=== PATIENT | female | born 1935 | race Caucasian/White ===

== ENCOUNTER 2019-05-06 08:26 | Outpatient (CLI) | payer MEDICARE, SELFPAY ==
[2019-05-06 08:43] LABS: Hematocrit 37.5 % (35.0-42.0); Hemoglobin 12.1 g/dL (11.7-13.8); Mean Corpuscular HGB Conc 32.3 g/dL (32.0-36.0); Mean Corpuscular Hemoglobin 29.4 pg (27.0-31.0); Mean Platelet Volume 10.1 fl (9.2-11.8); Platelet Count Result 206 K/mm3 (150-420); Red Blood Count 4.12 M/mm3 (4.20-5.40); Red Cell Distribution Width 13.3 % (11.6-14.4); White Blood Count 17.9 K/mm3 (4.8-10.8)
[2019-05-06 09:03] LABS: Hemoglobin A1C 6.9 % (<5.7)
[2019-05-06 09:05] LABS: Band Neutrophils Percent 0 % (0-6); Basophils Absolute Manual 0.17 K/mm3 (0-0.1); Basophils Percent Manual 1 % (0-1); Eosinophils Absolute Manual 0.17 K/mm3 (0.02-0.5); Eosinophils Percent Manual 1 % (1-6); Lymphocytes Absolute Manual 10.74 K/mm3 (1.1-4.5); Lymphocytes Percent Manual 60 % (18-44); Monocytes Absolute Manual 0.53 K/mm3 (0.1-0.90); Monocytes Percent Manual 3 % (3-9); Neutrophils Absolute Manual 6.26 K/mm3 (1.7-7.2); Neutrophils Percent Manual 35 % (46-73); Platelet Estimate Adequate (Adequate); Total Cells Counted 100
[2019-05-06 09:39] LABS: Alanine Aminotransferase 22 U/L (14-59); Albumin Level 3.6 g/dL (3.4-5.0); Alkaline Phosphatase 103 U/L (46-116); Anion Gap 14.1 mmol/L (7-16); Aspartate Amino Transferase 20 U/L (15-37); Bilirubin,Total 0.2 mg/dL (0.00-1.00); Blood Urea Nitrogen 25 mg/dL (7-18); Calcium 9.5 mg/dL (8.5-10.1); Carbon Dioxide 27 mmol/L (21-32); Chloride 103 mmol/L (98-108); Cholesterol 130 mg/dL (0-200); Estimated Glomerular Filt Rate 41; Glucose 114 mg/dL (70-99); HDL Direct 50 mg/dL (40-60); LDL Cholesterol Calculated 52 mg/dL (<130); Osmolality Calculated 295 mOsm/kg (285-295); Potassium 4.1 mmol/L (3.5-5.1); Sodium 140 mmol/L (136-145); Total Protein 6.7 g/dL (6.4-8.2); Triglycerides 142 mg/dL (0-150)
== END 2019-05-06 08:27 | disposition home or self-care (01) ==
PROVIDERS: PCP Internal Medicine; Visit Provider Internal Medicine
DX: E78.00 Pure hypercholesterolemia, unspecified (principal); E11.9 Type 2 diabetes mellitus without complications; I10 Essential (primary) hypertension
CPT/HCPCS: 36415; 80053; 80061; 83036; 85025

== ENCOUNTER 2019-09-18 13:01 | Outpatient (CLI) | payer MEDICARE, SELFPAY ==
[2019-09-18 13:12] LABS: Hematocrit 36.8 % (35.0-42.0); Hemoglobin 11.8 g/dL (11.7-13.8); Mean Corpuscular HGB Conc 32.1 g/dL (32.0-36.0); Mean Corpuscular Hemoglobin 29.8 pg (27.0-31.0); Mean Corpuscular Volume 92.9 fL (78.0-102.0); Mean Platelet Volume 10.1 fl (9.2-11.8); Platelet Count Result 217 K/mm3 (150-420); Red Blood Count 3.96 M/mm3 (4.20-5.40); Red Cell Distribution Width 13.4 % (11.6-14.4); White Blood Count 16.8 K/mm3 (4.8-10.8)
[2019-09-18 13:38] LABS: Band Neutrophils Percent 1 % (0-6); Basophils Absolute Manual 0.16 K/mm3 (0-0.1); Basophils Percent Manual 1 % (0-1); Eosinophils Absolute Manual 0.33 K/mm3 (0.02-0.5); Eosinophils Percent Manual 2 % (1-6); Lymphocytes Absolute Manual 9.24 K/mm3 (1.1-4.5); Lymphocytes Percent Manual 55 % (18-44); Monocytes Absolute Manual 0.67 K/mm3 (0.1-0.90); Monocytes Percent Manual 4 % (3-9); Neutrophils Absolute Manual 6.38 K/mm3 (1.7-7.2); Neutrophils Percent Manual 37 % (46-73); Platelet Estimate Adequate (Adequate); Total Cells Counted 100
[2019-09-18 13:39] LABS: Atypical Lymphocytes Present
== END 2019-09-18 13:02 | disposition home or self-care (01) ==
PROVIDERS: PCP Internal Medicine; Visit Provider Internal Medicine Hematology & Oncology
DX: C91.10 Chronic lymphocytic leukemia of B-cell type not having achieved remission (principal)
CPT/HCPCS: 36415; 85025

== ENCOUNTER 2019-11-02 14:28 | Inpatient (IN) | payer MEDICARE, OTHER, MEDICAID, SELFPAY ==
--- NOTE | ~2019-11-02 | XR_ITS ---
EXAMINATION: XR chest 2V DATE: 11/02/2019 15:12 INDICATION: Weakness and hypotension TECHNIQUE: AP and lateral views of the chest are obtained. COMPARISON: 03/05/2017 FINDINGS: The lungs are free of acute opacities. There is no pleural effusion or pneumothorax. The ca rdiomediastinal silhouette is normal. There is mild thoracic spondylosis. IMPRESSION: 1. No acute cardiopulmonary abnormality. Reviewed, dictated and finalized at location A.
[2019-11-02 14:30] VITALS: BP 123/47; PULSE 50; RESP 19; TEMP 36.8; O2SAT 97
--- NOTE | 2019-11-02 14:44 | ED.WEAKNESS ---
HPI - Weakness General Chief complaint: Weakness Stated complaint: AMB Time Seen by Provider: 11/02/19 15:15 Source: patient, family and EMS Mode of arrival: EMS Limitations: no limitations History of Present Illness HPI Narrative: 84-year-old woman history of type 2 diabetes and hypertension arrives via EMS from the [facility] with a complaint of weakness. Today while supine the staff took her blood pressure and noticed SBP in the 80s. She was also bradycardic in the 40s and 50s. On the arrival of EMS she was sat up, her blood pressure was rechecked and was found to be normal. Patient states that she has been having abdominal pain for quite a long time but has a normal appetite. She has had off and on diarrhea for some time according to her daughter. She denies chest pain, shortness breath, vomiting, Fever, cough or cold symptoms, headache, cold symptoms, dysuria, frequent urination, or rash. Complaint: generalized weakness Onset (ago): day(s) Duration: constant Location: generalized Migration: none Severity: moderate Relieving factors: none Exacerbating factors: none Related Data Home Medications Medication Instructions Recorded Confirmed acetaminophen 1,000 mg PO BID PRN 11/02/19 11/02/19 allopurinol 200 mg PO DAILY 11/02/19 11/02/19 amlodipine 5 mg PO HS 11/02/19 11/02/19 aspirin 81 mg PO DAILY 11/02/19 11/02/19 calcium polycarbophil [Fiber-Lax] 1,250 mg PO BID 11/02/19 11/02/19 carvedilol 12.5 mg PO DAILY 11/02/19 11/02/19 donepezil 10 mg PO DAILY 11/02/19 11/02/19 escitalopram oxalate 10 mg PO DAILY 11/02/19 11/02/19 hydrochlorothiazide 25 mg PO DAILY 11/02/19 11/02/19 irbesartan 300 mg PO DAILY 11/02/19 11/02/19 lifitegrast [Xiidra] 1 drp OPHTHALMIC (EYE) BID 11/02/19 11/02/19 magnesium oxide 400 mg PO DAILY 11/02/19 11/02/19 montelukast 10 mg PO DAILY 11/02/19 11/02/19 pantoprazole 40 mg PO DAILY 11/02/19 11/02/19 rosuvastatin 5 mg PO DAILY 11/02/19 11/02/19 sitagliptin [Januvia] 100 mg PO DAILY 11/02/19 11/02/19 Allergies Allergy/AdvReac Type Severity Reaction Status Date / Time adhesive Allergy Mild Unknown Unverified 11/02/19 16:52 ciprofloxacin Allergy Unknown Unknown Verified 11/02/19 16:52 metformin Allergy Unknown Unknown Verified 11/02/19 16:52 Review of Systems Constitutional: Constitutional: Reports as per HPI, Denies chills, Denies fever(s) and Reports weakness Eyes: Eyes: Denies change in vision and Denies photophobia ENT: Denies dysphagia, Denies nasal congestion and Denies sore throat Cardiovascular: Cardiovascular: Denies chest pain and Denies radiating jaw, neck or arm pain Respiratory: Respiratory: Denies cough, Denies dyspnea and Denies wheezing Gastrointestinal: Gastrointestinal: Reports abdominal pain, Denies diarrhea, Denies nausea and Denies vomiting Musculoskeletal: Musculoskeletal: Denies back pain, Reports arthralgias ( Hips) and Denies joint swelling Integumentary/Breasts: Skin/Breast: Denies pruritus, Denies erythema and Denies rash Neurologic: Denies vertigo, Denies dizziness, Denies syncope and Denies headache(s) Hematologic/Lymphatic: Hematologic/Lymphatic: Denies easy bleeding and Denies easy bruising Allergic/Immunologic: Allergic/Immunologic: Denies lip swelling and Denies wheezing PMFSH Past Medical History Medical History Elevated WBC count Hypertension Type 2 diabetes mellitus Surgical History Surgical History H/O oophorectomy History of cholecystectomy History of hysterectomy History of total knee arthroplasty bilateral Hx of appendectomy Family History Family History (Updated 10/19/16 @ 11:16 by DOCTOR UNKNOWN) Father Diabetes mellitus Family history of rheumatoid arthritis Other Family history of malignant neoplasm Hypertension Social History Social History Michelle
--- NOTE | 2019-11-02 14:45 | ECG_ITS ---
Measurements Intervals [place] Rate: 48 P: -62 DC: 214 QRS: 5 QRSD: 94 T: 30 QT: 460 QTc: 413 Interpretive Statements SINUS BRADYCARDIA WITH FIRST DEGREE AV BLOCK ABNORMAL ECG Electronically Signed On 11-02-2019 17:19:28 CDT by Ricardo Jean D.O.
[2019-11-02 15:05] LABS: Add Urine Microscopic? YES; Appearance Urine Sl Cloudy (Clear); Bilirubin Urine Negative (Negative); Blood Urine Negative (Negative); Color Urine Yellow (Yellow); Glucose Urine UA Negative (Negative); Ketones Urine Trace (Negative); Leukocyte Esterase Ur Negative LEU/UL (Negative); Nitrate Urine Negative (Negative); Protein Urine 2+ (Negative); Specific Grav Ur 1.025 (1.010-1.020); Urobilinogen Urine 0.2 mg/dL (0.2-1.0)
[2019-11-02 15:06] LABS: Basophils Absolute Auto 0.04 K/mm3 (0.00-0.10); Basophils Percent Auto 0.3 % (0.0-1.0); Hematocrit 36.2 % (35.0-42.0); Hemoglobin 11.5 g/dL (11.7-13.8); Immature Granulocyte Absolute 0.05 K/mm3 (0.00-0.00); Immature Granulocyte Percent A 0.3 % (0.0-0.0); Lymphocytes Absolute Auto 5.55 K/mm3 (1.10-4.50); Lymphocytes Percent Auto 36.9 % (18.0-42.0); Mean Corpuscular HGB Conc 31.8 g/dL (32.0-36.0); Mean Corpuscular Hemoglobin 29.6 pg (27.0-31.0); Mean Corpuscular Volume 93.1 fL (78.0-102.0); Mean Platelet Volume 10.3 fl (9.2-11.8); Monocytes Percent Auto 4.7 % (2.0-11.0); Neutrophils Absolute Auto 8.4 K/mm3 (1.7-7.2); Neutrophils Percent Auto 55.8 % (50.0-70.0); Platelet Count Result 191 K/mm3 (150-420); Red Blood Count 3.89 M/mm3 (4.20-5.40); Red Cell Distribution Width 14.1 % (11.6-14.4); White Blood Count 15.1 K/mm3 (4.8-10.8)
[2019-11-02 15:08] LABS: Amorphous Sediment Urine Few; Bacteria Urine Trace /hpf; RBC Urine None seen /hpf (0-2); Squamous Epithelial Cell Urine Rare /hpf (Few); WBC Urine None seen /hpf (0-3)
[2019-11-02 15:18] LABS: Partial Thromboplastin Time 27.6 SEC (22.3-31.6); Prothrombin Time 10.4 Seconds (9.64-11.0)
[2019-11-02 15:25] LABS: Alanine Aminotransferase 21 U/L (14-59); Albumin Level 3.2 g/dL (3.4-5.0); Alkaline Phosphatase 111 U/L (46-116); Anion Gap 6.3 mmol/L (7-16); Aspartate Amino Transferase 16 U/L (15-37); Bilirubin,Total 0.3 mg/dL (0.00-1.00); Blood Urea Nitrogen 28 mg/dL (7-18); CRP 0.3 mg/dL (0.0-0.9); Calcium 8.9 mg/dL (8.5-10.1); Carbon Dioxide 33 mmol/L (21-32); Chloride 101 mmol/L (98-108); Estimated Glomerular Filt Rate 28; Glucose 226 mg/dL (70-99); Osmolality Calculated 294 mOsm/kg (285-295); Potassium 4.3 mmol/L (3.5-5.1); Sodium 136 mmol/L (136-145); Total Protein 6.4 g/dL (6.4-8.2)
[2019-11-02 15:27] LABS: Lipase 207 U/L (73-393); Troponin I < 0.02 ng/mL (0.00-0.056)
[2019-11-02 15:29] LABS: Lactic Acid Reflex 1.7 mmol/L (0.4-2.0)
[2019-11-02 15:56] VITALS: BP 142/67; PULSE 50; RESP 15; O2SAT 95
[2019-11-02 16:30] VITALS: BP 163/87; PULSE 50; O2SAT 95
[2019-11-02 16:58] VITALS: BMI 39.1
--- NOTE | 2019-11-02 17:44 | PC.NURSE ---
MD notified that patient is c/o pain to left knee. Patient given PRN pain medication, patient continues to curse and yell out. New orders received.
[2019-11-02] MEDS: calcium polycarbophiL 625 MG TABLET 1250 MG PO (18:07)
[2019-11-02] MEDS: SODIUM CHLORIDE 0.45% 1,000 ML 100 ML IV CONT ×2 (18:07→20:15)
--- NOTE | 2019-11-02 19:10 | PC.NURSE ---
Patient ambulated to/from bathroom with gait belt, walker and CGA. IV fluids infusing to site in LAC without difficulty. Daughter in room but getting ready to leave. Patient denies pain/complaints/needs @ this time. No distress noted. Call light in reach.
[2019-11-02 19:53] VITALS: BP 162/49; PULSE 50; RESP 20; TEMP 36.4; O2SAT 97
--- NOTE | 2019-11-02 20:05 | PC.NURSE ---
Patient A&Ox4. IV fluids infusing to site in LAC without difficulty. Denies pain/complaints/needs @ this time. No distress noted. Call light in reach.
[2019-11-02] MEDS: amLODIPine BESYLATE 5 MG TABLET PO (20:15)
[2019-11-02 20:25] LABS: Troponin I < 0.02 ng/mL (0.00-0.056)
--- NOTE | 2019-11-02 21:00 | PC.NURSE ---
Patient lying in bed watching tv. IV fluids infusing to site in LAC without difficulty. Denies pain/complaints/needs @ this time. No distress noted. Call light in reach.
[2019-11-02 21:50] LABS: Glucose Point of Care 182 (65-105)
--- NOTE | 2019-11-02 22:10 | PC.NURSE ---
Patient still lying in bed awake and watching tv. IV fluids infusing to site in LAC without difficulty. Denies pain/complaints/needs @ this time. No distress noted. Call light in reach.
--- NOTE | 2019-11-02 23:05 | PC.NURSE ---
IV fluids infusing to site in LAC without difficulty. Denies pain/complaints/needs @ this time. Patient says she just can't get to sleep tonight. No distress noted. Call light in reach.
[2019-11-03] VITALS (13 sets, daily range): BP systolic 123–155; BP diastolic 47–96; PULSE 50–68; RESP 16–20; TEMP 36.6–37.3; O2SAT 93–95
--- NOTE | 2019-11-03 00:05 | PC.NURSE ---
Patient still wide awake watching tv. IV fluids infusing to site in LAC without difficulty. Denies pain/complaints/needs @ this time. No distress noted. Call light in reach.
--- NOTE | 2019-11-03 01:00 | PC.NURSE ---
Patient still wide awake and says she just can't sleep and says she thinks it's because she doesn't have all these different channels @ home and she keeps finding things interesting to watch. Suggested patient turn tv off and try to sleep and she said maybe later. IV fluids infusing to site in LAC without difficulty. Denies pain/complaints/needs @ this time. No distress noted. Call light in reach.
[2019-11-03 01:40] LABS: Hematocrit 35.2 % (35.0-42.0); Hemoglobin 11.1 g/dL (11.7-13.8); Mean Corpuscular HGB Conc 31.5 g/dL (32.0-36.0); Mean Corpuscular Hemoglobin 29.1 pg (27.0-31.0); Mean Corpuscular Volume 92.1 fL (78.0-102.0); Mean Platelet Volume 10.5 fl (9.2-11.8); Platelet Count Result 194 K/mm3 (150-420); Red Blood Count 3.82 M/mm3 (4.20-5.40); Red Cell Distribution Width 13.8 % (11.6-14.4); White Blood Count 19.9 K/mm3 (4.8-10.8)
--- NOTE | 2019-11-03 02:00 | PC.NURSE ---
Patient appears to be sleeping by the rise and fall of her chest. Respirations even and unlabored. No distress noted. IV fluids infusing to site in LAC without difficulty. Call light in reach.
[2019-11-03 02:02] LABS: Band Neutrophils Percent 0 % (0-6); Basophils Absolute Manual 0.19 K/mm3 (0-0.1); Basophils Percent Manual 1 % (0-1); Eosinophils Absolute Manual 0.59 K/mm3 (0.02-0.5); Eosinophils Percent Manual 3 % (1-6); Lymphocytes Absolute Manual 11.14 K/mm3 (1.1-4.5); Lymphocytes Percent Manual 56 % (18-44); Metamyelocytes Percent 1 %; Monocytes Absolute Manual 0.79 K/mm3 (0.1-0.90); Monocytes Percent Manual 4 % (3-9); Neutrophils Absolute Manual 6.96 K/mm3 (1.7-7.2); Neutrophils Percent Manual 35 % (46-73); Platelet Estimate Adequate (Adequate)
[2019-11-03 02:09] LABS: Troponin I < 0.02 ng/mL (0.00-0.056)
[2019-11-03 02:10] LABS: Alanine Aminotransferase 18 U/L (14-59); Alkaline Phosphatase 104 U/L (46-116); Anion Gap 7.1 mmol/L (7-16); Aspartate Amino Transferase 17 U/L (15-37); Bilirubin,Total 0.3 mg/dL (0.00-1.00); Blood Urea Nitrogen 28 mg/dL (7-18); Calcium 8.9 mg/dL (8.5-10.1); Carbon Dioxide 30 mmol/L (21-32); Chloride 102 mmol/L (98-108); Estimated CRCL calculation 27 ml/min; Estimated Glomerular Filt Rate 37; Glucose 156 mg/dL (70-99); Osmolality Calculated 288 mOsm/kg (285-295); Potassium 4.1 mmol/L (3.5-5.1); Sodium 135 mmol/L (136-145); Total Protein 6.1 g/dL (6.4-8.2)
[2019-11-03 02:33] LABS: Lactic Acid 0.8 mmol/L (0.4-2.0)
--- NOTE | 2019-11-03 03:10 | PC.NURSE ---
Patient awake and is watching tv. Says she just can't sleep because it's not her regular bed and hers is much larger. Respirations even and unlabored. IV fluids infusing to site in LAC without difficulty. No distress noted. Denies pain/complaints/needs @ this time. Call light in reach.
--- NOTE | 2019-11-03 04:00 | PC.NURSE ---
Patient ambulated to/from bathroom with walker, gait belt and CGA with steady gait. Patient incontinent of urine with incontinence care provided. Denies pain/complaints/needs @ this time. IV fluids infusing to site in LAC without difficulty. No distress noted. Call light in reach.
--- NOTE | 2019-11-03 05:00 | PC.NURSE ---
Patient appears to be sleeping by the rise and fall of her chest. Respirations even and unlabored. IV fluids infusing to site in LAC without difficulty. No distress noted. Call light in reach.
[2019-11-03 07:36] LABS: Glucose Point of Care 110 (65-105)
[2019-11-03 08:02] LABS: Hemoglobin 11.1 g/dL (11.7-13.8); Mean Corpuscular HGB Conc 31.7 g/dL (32.0-36.0); Mean Corpuscular Hemoglobin 28.9 pg (27.0-31.0); Mean Corpuscular Volume 91.1 fL (78.0-102.0); Mean Platelet Volume 10.4 fl (9.2-11.8); Platelet Count Result 194 K/mm3 (150-420); Red Blood Count 3.84 M/mm3 (4.20-5.40); Red Cell Distribution Width 13.7 % (11.6-14.4)
[2019-11-03 08:03] LABS: White Blood Count 20.3 K/mm3 (4.8-10.8)
[2019-11-03] MEDS: MONTELUKAST SODIUM 10 MG TABLET PO (09:24)
[2019-11-03] MEDS: hydroCHLOROthiazide 25 MG TABLET PO (09:24)
[2019-11-03] MEDS: PANTOPRAZOLE 40 MG TABLET PO (09:24)
[2019-11-03] MEDS: ESCITALOPRAM OXALATE 10 MG TABLET PO (09:24)
[2019-11-03] MEDS: MAGNESIUM OXIDE 400 MG TABLET PO (09:24)
[2019-11-03] MEDS: ROSUVASTATIN 5 MG TABLET PO (09:24)
[2019-11-03] MEDS: calcium polycarbophiL 625 MG TABLET 1250 MG PO ×2 (09:24→17:28)
[2019-11-03] MEDS: DONEPEZIL HCL 5 MG TABLET 10 MG PO (09:25)
[2019-11-03] MEDS: allopurinoL 100 MG TABLET 200 MG PO (09:25)
[2019-11-03] MEDS: ASPIRIN 81 MG ENTERIC TABLET PO (09:26)
[2019-11-03] MEDS: SODIUM CHLORIDE 0.45% 1,000 ML 100 ML IV CONT ×2 (09:29→19:05)
[2019-11-03] MEDS: IRBESARTAN 150 MG TABLET 300 MG PO (09:46)
[2019-11-03 11:24] LABS: Glucose Point of Care 142 (65-105)
--- NOTE | 2019-11-03 11:44 | PM.IMHP ---
H&P: HPI History of Present Illness Date/Time: 11/03/19 11:44 <BETTY Arciniega - Last Filed: 11/03/19 12:05> Chief complaint: dehydration <BETTY Arciniega - Last Filed: 11/03/19 12:05> Narrative: Ashley Prescott is a 84 year old female Who presented to [facility] ED with complaints of weakness. Patient has a past medical history of CML, hypertension and diabetes. Patient is a resident of [place] and noted that yesterday she developed uncontrolled diarrhea and became weak. According to staff members patient's systolic blood pressure was in the 80s with heart rates being in the 40s to 50s. Patient does have a history of abdominal tenderness and this is not new to her. Her vital signs are 142/60, 53, 18, 97.6, 94%. Patient white blood cells were elevated but she has a history of elevated white blood cells due to CML, her BUN and creatinine was slightly elevated her EKG did show sinus Jovanny with heart rate of 40 a chest x-ray negative troponin negative lactic acid normal blood culture and UA culture pending. Patient is being admitted for dehydration and weakness. Patient able to tolerate all meals , slept well and ambulate at baseline. Patient denies SOB, CP, palpitation, extremity numbness, lightheadness, constipation, diarrhea, chills or fever. patient does continue to complain of dizziness when sitting on the side of bed or standing. patient will possibly discharge tomorrow after IV hydration. <BETTY Arciniega - Last Filed: 11/03/19 12:05> Review of Systems Review of Systems: Narrative: CONSTITUTIONAL :No weight loss, fever, chills, complains of weakness or fatigue.: HEENT: Eyes: No diplopia or blurred vision. ENT: No earache, sore throat or runny nose. CARDIOVASCULAR: No pressure, squeezing, strangling, tightness, heaviness or aching about the chest, neck, axilla or epigastrium. RESPIRATORY: No cough, shortness of breath, PND or orthopnea. GASTROINTESTINAL: No nausea, vomiting or diarrhea. abdominal tenderness chronic GENITOURINARY: No dysuria, frequency or urgency. MUSCULOSKELETAL: No muscle, back pain, joint pain or stiffness. SKIN: No change in skin, hair or nails. NEUROLOGIC: No paresthesias, fasciculations, seizures patient does complain of dizziness PSYCHIATRIC: No disorder of thought or mood. ENDOCRINE: No heat or cold intolerance, polyuria or polydipsia. HEMATOLOGICAL: No easy bruising or bleeding. <BETTY Arciniega - Last Filed: 11/03/19 12:05> [facility] Past Medical History Medical History: Medical History (Updated 11/03/19 @ 09:32 by BETTY Arciniega) CML (chronic myelocytic leukemia) Elevated WBC count Hypertension Type 2 diabetes mellitus <BETTY Arciniega - Last Filed: 11/03/19 12:05> Surgical History Surgical History: Surgical History H/O oophorectomy History of cholecystectomy History of hysterectomy History of total knee arthroplasty bilateral Hx of appendectomy <BETTY Arciniega - Last Filed: 11/03/19 12:05> Family History Family History: Family History (Updated 10/19/16 @ 11:16 by DOCTOR UNKNOWN) Father Diabetes mellitus Family history of rheumatoid arthritis Other Family history of malignant neoplasm Hypertension <BETTY Arciniega - Last Filed: 11/03/19 12:05> Social History Social History: Social History Smoking status: Never smoker Alcohol intake: former Substance use: never Substance use type: does not use Living arrangements: assisted living Gender identity (if verbalized by the patient): Female Sexual Orientation (if Verbalized by the Patient): Straight or Heterosexual Spiritual care concerns: No <BETTY Arciniega - Last Filed: 11/03/19 12:05> Meds Home Medications and Allergies Home medications: Home Medications Medication In
[2019-11-03 16:34] LABS: Glucose Point of Care 126 (65-105)
[2019-11-03] MEDS: ACETAMINOPHEN 325 MG TABLET 650 MG PO (19:21)
[2019-11-03] MEDS: amLODIPine BESYLATE 5 MG TABLET PO (21:08)
[2019-11-03 21:34] LABS: Glucose Point of Care 147 (65-105)
--- NOTE | 2019-11-03 22:56 | PC.NURSE ---
Sleeping, no signs of pain or distress.
--- NOTE | 2019-11-04 00:33 | PC.NURSE ---
Incontinent of urine x 2 requiring complete bed and gown change as well as voiding in bathroom. 1000ml 0.45NS continues @100ml/hr per pump without signs of infiltration/infection.
[2019-11-04 00:35] VITALS: TEMP 36.5
--- NOTE | 2019-11-04 02:35 | PC.NURSE ---
Sleeping, no signs of pain or discomfort. IV: 1000ml 0.45 NS continues per pump @100ml/hr.
[2019-11-04 03:49] VITALS: BP 160/60; PULSE 51; RESP 18; TEMP 36.9; O2SAT 93
[2019-11-04 05:34] LABS: Hematocrit 35.6 % (35.0-42.0); Hemoglobin 11.3 g/dL (11.7-13.8); Mean Corpuscular HGB Conc 31.7 g/dL (32.0-36.0); Mean Corpuscular Hemoglobin 29.1 pg (27.0-31.0); Mean Corpuscular Volume 91.8 fL (78.0-102.0); Mean Platelet Volume 10.1 fl (9.2-11.8); Platelet Count Result 200 K/mm3 (150-420); Red Blood Count 3.88 M/mm3 (4.20-5.40); White Blood Count 19.7 K/mm3 (4.8-10.8)
[2019-11-04 05:54] LABS: Band Neutrophils Percent 0 % (0-6); Basophils Percent Manual 0 % (0-1); Eosinophils Absolute Manual 0.19 K/mm3 (0.02-0.5); Eosinophils Percent Manual 1 % (1-6); Lymphocytes Percent Manual 65 % (18-44); Monocytes Absolute Manual 0.98 K/mm3 (0.1-0.90); Monocytes Percent Manual 5 % (3-9); Neutrophils Absolute Manual 5.71 K/mm3 (1.7-7.2); Neutrophils Percent Manual 29 % (46-73); Platelet Estimate Adequate (Adequate)
[2019-11-04 05:58] LABS: Alanine Aminotransferase 21 U/L (14-59); Albumin Level 3.1 g/dL (3.4-5.0); Anion Gap 8.1 mmol/L (7-16); Aspartate Amino Transferase 16 U/L (15-37); Bilirubin,Total 0.4 mg/dL (0.00-1.00); Blood Urea Nitrogen 24 mg/dL (7-18); Calcium 9.1 mg/dL (8.5-10.1); Carbon Dioxide 29 mmol/L (21-32); Chloride 99 mmol/L (98-108); Estimated CRCL calculation 30 ml/min; Estimated Glomerular Filt Rate 41; Glucose 118 mg/dL (70-99); Osmolality Calculated 279 mOsm/kg (285-295); Potassium 4.1 mmol/L (3.5-5.1); Sodium 132 mmol/L (136-145); Total Protein 6.3 g/dL (6.4-8.2)
[2019-11-04 06:08] LABS: Alkaline Phosphatase 113 U/L (46-116)
--- NOTE | 2019-11-04 06:20 | PC.NURSE ---
Up to bathroom, discussed need to stay on toilet until bed changed. Patient found standing at sink, returned to bed without problems; while lying in bed; states turned head and became momentarily dizzy. Sensation resolved without intervention after a few moments.
[2019-11-04] MEDS: SODIUM CHLORIDE 0.45% 1,000 ML 100 ML IV CONT (06:26)
[2019-11-04 07:45] VITALS: BP 158/57; PULSE 50; PULSE 52; RESP 16; TEMP 36.6; O2SAT 96
[2019-11-04 07:54] LABS: Glucose Point of Care 111 (65-105)
[2019-11-04] MEDS: IRBESARTAN 150 MG TABLET 300 MG PO (08:51)
[2019-11-04] MEDS: MONTELUKAST SODIUM 10 MG TABLET PO (08:52)
[2019-11-04] MEDS: ESCITALOPRAM OXALATE 10 MG TABLET PO (08:52)
[2019-11-04] MEDS: DONEPEZIL HCL 5 MG TABLET 10 MG PO (08:52)
[2019-11-04] MEDS: calcium polycarbophiL 625 MG TABLET 1250 MG PO (08:52)
[2019-11-04 08:53] VITALS: PULSE 56
[2019-11-04] MEDS: PANTOPRAZOLE 40 MG TABLET PO (08:53)
[2019-11-04] MEDS: ROSUVASTATIN 5 MG TABLET PO (08:53)
[2019-11-04] MEDS: ASPIRIN 81 MG ENTERIC TABLET PO (08:53)
[2019-11-04] MEDS: hydroCHLOROthiazide 25 MG TABLET PO (08:54)
[2019-11-04] MEDS: MAGNESIUM OXIDE 400 MG TABLET PO (08:54)
[2019-11-04] MEDS: amLODIPine BESYLATE 2.5 MG, amLODIPine BESYLATE 5 MG 7.5 MG PO (08:54)
[2019-11-04] MEDS: allopurinoL 100 MG TABLET 200 MG PO (08:54)
[2019-11-04 11:37] LABS: Glucose Point of Care 135 (65-105)
[2019-11-04 12:00] VITALS: BP 126/58; PULSE 60; PULSE 62; RESP 18; TEMP 36.6; O2SAT 96
--- NOTE | 2019-11-04 12:49 | P.DS_ITS ---
DS: Admitting Diagnosis Admitting Diagnosis Admitting Diagnosis: bradycardia and dehydration <Mary VizcainoDAVID IbarraC - Last Filed: 11/04/19 12:58> DS: Discharge Diagnosis Discharge Diagnosis (1) CML (chronic myelocytic leukemia): Code(s): C92.10 - Chronic myeloid leukemia, BCR/ABL-positive, not having achieved remission <Uvaldoezequiel CarrilloSAMEER Ibarra-C - Last Filed: 11/04/19 12:58> Status: Acute <Mary HuertaDAVIDC - Last Filed: 11/04/19 12:58> Assessment and Plan: * patient wbc's remain elevated due to CML * her PCP follows and manages <Uvaldoezequiel CarrilloBETTY Ibarra - Last Filed: 11/04/19 12:58> (2) Weakness: Code(s): R53.1 - Weakness <Uvaldoezequiel CarrilloDAVID IbarraC - Last Filed: 11/04/19 12:58> Status: Acute <Uvaldoezequiel CarrilloSAMEER Ibarra-C - Last Filed: 11/04/19 12:58> Assessment and Plan: ? Exhibit tolerance during physical activity as evidenced by a normal fluctuation of vital signs during physical activity. ? Patient will be ability to perform required activities of daily living. ? Provide appropriate nutrition for healing and strength. ? Use appropriate to prevent falls. ? Continue physical therapy/occupational therapy. <Uvaldoezequiel CarrilloBETTY Ibarra - Last Filed: 11/04/19 12:58> (3) Acute dehydration: Code(s): E86.0 - Dehydration <Uvaldoezequiel CarrilloDAVID IbarraC - Last Filed: 11/04/19 12:58> Status: Acute <Uvaldoezequiel CarrilloSAMEER Ibarra-[place] - Last Filed: 11/04/19 12:58> Assessment and Plan: * resolved * secondary to diarrhea * continue IV hydration * continue orthostatic blood pressure readings line 123/88 with a heart rate of 50, sitting 129/96 with a heart rate of 60 in standing 138/47 with a heart rate of 68 <SAMEER Arciniega-C - Last Filed: 11/04/19 12:58> (4) Bradycardia: Code(s): R00.1 - Bradycardia, unspecified <SAMEER Arciniega-C - Last Filed: 11/04/19 12:58> Status: Acute <Mary HuertaSAMEERLmVenice - Last Filed: 11/04/19 12:58> Assessment and Plan: * Previous blood pressure reading at doctor's office on May 09, 2019 93/67 with a heart rate of 77 * Coreg 12.5 mg b.i.d.on hold * contacted patient's primary care physician suggested patient discharged with carvedilol 3.12 daily * will follow-up with primary care physician for adjustment * might possibly be secondary to dehydration * educated on fall and dizziness prevention * <Uvaldoezequiel CarrilloBETTY Ibarra - Last Filed: 11/04/19 12:58> (5) Hypertension: Code(s): I10 - Essential (primary) hypertension <Mary VizcainoChristos BradleyBETTY - Last Filed: 11/04/19 12:58> Status: Acute <Mary VizcainoSAMEER IbarraLmVenice - Last Filed: 11/04/19 12:58> Assessment and Plan: * blood pressure stable * continue Norvasc, coreg and hydrochlorothiazide * primary care physician will manage <Mary VizcainoChristos BradleyBETTY - Last Filed: 11/04/19 12:58> (6) Type 2 diabetes mellitus: Code(s): E11.9 - Type 2 diabetes mellitus without complications <Mary VizcainoBETTY Ibarra - Last Filed: 11/04/19 12:58> Status: Acute <Mary VizcainoSAMEER IbarraLmVenice - Last Filed: 11/04/19 12:58> Assessment and Plan: * May 06, 2019 A1c at 6.9 * continue home medication * <BETTY Arciniega - Last Filed: 11/04/19 12:58> DS: Summary Hospital Course Hospital Course: Refer to H&P patient discharged today. contacted Dr. Perez informed them of patient's new bradycardia. suggested that patient's carvedilol be reduced and she fo
--- NOTE | 2019-11-04 12:49 | PM.DS ---
DS: Admitting Diagnosis Admitting Diagnosis Admitting Diagnosis: bradycardia and dehydration <Uvaldoezequiel CarrilloBETTY Ibarra - Last Filed: 11/04/19 12:58> DS: Discharge Diagnosis Discharge Diagnosis (1) CML (chronic myelocytic leukemia): Code(s): C92.10 - Chronic myeloid leukemia, BCR/ABL-positive, not having achieved remission <Uvaldoezequiel CarrilloDAVID IbarraC - Last Filed: 11/04/19 12:58> Status: Acute <Mary VizcainoDAVID IbarraC - Last Filed: 11/04/19 12:58> Assessment and Plan: patient wbc's remain elevated due to CML her PCP follows and manages <UvaldoBETTY Ayala - Last Filed: 11/04/19 12:58> (2) Weakness: Code(s): R53.1 - Weakness <Mary VizcainoBETTY Ibarra - Last Filed: 11/04/19 12:58> Status: Acute <Mary CarrilloDAVID IbarraC - Last Filed: 11/04/19 12:58> Assessment and Plan: ? Exhibit tolerance during physical activity as evidenced by a normal fluctuation of vital signs during physical activity. ? Patient will be ability to perform required activities of daily living. ? Provide appropriate nutrition for healing and strength. ? Use appropriate to prevent falls. ? Continue physical therapy/occupational therapy. <Uvaldoezequiel CarrilloBETTY Ibarra - Last Filed: 11/04/19 12:58> (3) Acute dehydration: Code(s): E86.0 - Dehydration <Mary VizcainoBETTY Ibarra - Last Filed: 11/04/19 12:58> Status: Acute <Uvaldoezequiel CarrilloBETTY Ibarra - Last Filed: 11/04/19 12:58> Assessment and Plan: resolved secondary to diarrhea continue IV hydration continue orthostatic blood pressure readings line 123/88 with a heart rate of 50, sitting 129/96 with a heart rate of 60 in standing 138/47 with a heart rate of 68 <Mary CarrilloSAMEER Ibarra-C - Last Filed: 11/04/19 12:58> (4) Bradycardia: Code(s): R00.1 - Bradycardia, unspecified <DAVID ArciniegaC - Last Filed: 11/04/19 12:58> Status: Acute <Mary HuertaSAMEERLmVenice - Last Filed: 11/04/19 12:58> Assessment and Plan: Previous blood pressure reading at doctor's office on May 09, 2019 93/67 with a heart rate of 77 Coreg 12.5 mg b.i.d.on hold contacted patient's primary care physician suggested patient discharged with carvedilol 3.12 daily will follow-up with primary care physician for adjustment might possibly be secondary to dehydration educated on fall and dizziness prevention <Mary VizcainoBETTY Ibarra - Last Filed: 11/04/19 12:58> (5) Hypertension: Code(s): I10 - Essential (primary) hypertension <Mary VizcainoBETTY Ibarra - Last Filed: 11/04/19 12:58> Status: Acute <Mary HuertaANGELITADakota - Last Filed: 11/04/19 12:58> Assessment and Plan: blood pressure stable continue Norvasc, coreg and hydrochlorothiazide primary care physician will manage <Mary HuertaSAMEERCaro - Last Filed: 11/04/19 12:58> (6) Type 2 diabetes mellitus: Code(s): E11.9 - Type 2 diabetes mellitus without complications <Mary VizcainoSAMEER IbarraLmVenice - Last Filed: 11/04/19 12:58> Status: Acute <Mary Huerta BETTY - Last Filed: 11/04/19 12:58> Assessment and Plan: May 06, 2019 A1c at 6.9 continue home medication <Mary VizcainoChristos BradleySAMEERCaro - Last Filed: 11/04/19 12:58> DS: Summary Hospital Course Hospital Course: Refer to H&P patient discharged today. contacted Dr. Perez informed them of patient's new bradycardia. suggested that patient's carvedilol be reduced and she follow-up in his office. Patient educated on dizziness And dehydration prevention. patient's ears checked bilateral no otitis media indication . received report that patient becomes dizzy knees when she turned her head to the left or right. Patient able to tolerate all meals , slept well and ambulate at baseline. Patient denies SOB, CP, palpitation, extremity numbness, lightheadness, co
== END 2019-11-04 12:40 | DRG 641 ==
LOC: CHSED 14:35 → CHS2ND 16:18
PROVIDERS: Nurse Practitioner; Admitting Provider Emergency Medicine; Emergency Provider Emergency Medicine; PCP Internal Medicine; Visit Provider Emergency Medicine
DX: E86.0 Dehydration (principal); C92.10 Chronic myeloid leukemia, BCR/ABL-positive, not having achieved remission; E11.9 Type 2 diabetes mellitus without complications; I10 Essential (primary) hypertension; R00.1 Bradycardia, unspecified
CPT/HCPCS: 36415; 51701; 71046; 80053; 81001; 83605; 83690; 84484; 85025; 85027; 85610; 85730; 86140; 87040; 87077; 87086; 87088; 87186; 93005; 96360; 96361; 97161; 97165; 99283; 99285; A9270; G0378

== ENCOUNTER 2020-06-23 10:06 | Outpatient (NON) | payer MEDICARE, SELFPAY ==
[2020-06-23 10:23] LABS: Add Urine Microscopic? NO; Appearance Urine Clear (Clear); Bilirubin Urine Negative (Negative); Blood Urine Negative (Negative); Color Urine Yellow (Yellow); Glucose Urine UA Negative (Negative); Ketones Urine Negative (Negative); Leukocyte Esterase Ur Negative LEU/UL (Negative); Nitrate Urine Negative (Negative); Protein Urine Negative (Negative); Urobilinogen Urine 0.2 mg/dL (0.2-1.0); pH Urine 6.5 (5.0-8.0)
[2020-06-23 10:25] LABS: Hematocrit 36.8 % (35.0-42.0); Hemoglobin 11.5 g/dL (11.7-13.8); Mean Corpuscular HGB Conc 31.3 g/dL (32.0-36.0); Mean Corpuscular Hemoglobin 27.8 pg (27.0-31.0); Mean Corpuscular Volume 88.9 fL (78.0-102.0); Mean Platelet Volume 10.3 fl (9.2-11.8); Platelet Count Result 215 K/mm3 (150-420); Red Blood Count 4.14 M/mm3 (4.20-5.40); Red Cell Distribution Width 14.2 % (11.6-14.4)
[2020-06-23 10:45] LABS: White Blood Count 20.3 K/mm3 (4.8-10.8)
[2020-06-23 10:46] LABS: Band Neutrophils Percent 0 % (0-6); Basophils Percent Manual 0 % (0-1); Eosinophils Absolute Manual 0.81 K/mm3 (0.02-0.5); Eosinophils Percent Manual 4 % (1-6); Lymphocytes Percent Manual 69 % (18-44); Monocytes Percent Manual 3 % (3-9); Neutrophils Absolute Manual 4.87 K/mm3 (1.7-7.2); Neutrophils Percent Manual 24 % (46-73); Platelet Estimate Adequate (Adequate); Total Cells Counted 100
[2020-06-23 10:52] LABS: Hemoglobin A1C 7.5 % (<5.7)
[2020-06-23 11:00] LABS: Alanine Aminotransferase 18 U/L (14-59); Albumin Level 3.3 g/dL (3.4-5.0); Alkaline Phosphatase 119 U/L (46-116); Anion Gap 8 mmol/L (8-16); Aspartate Amino Transferase 12 U/L (15-37); Bilirubin,Total 0.3 mg/dL (0.00-1.00); Blood Urea Nitrogen 24 mg/dL (7-18); Calcium 9.5 mg/dL (8.5-10.1); Carbon Dioxide 30 mmol/L (21-32); Chloride 99 mmol/L (98-108); Cholesterol 115 mg/dL (0-200); Estimated Glomerular Filt Rate 39; Glucose 123 mg/dL (70-99); HDL Direct 37 mg/dL (40-60); LDL Cholesterol Calculated 41 mg/dL (<130); Osmolality Calculated 289 mOsm/kg (285-295); Potassium 4.6 mmol/L (3.5-5.1); Sodium 137 mmol/L (136-145); Thyroid Stimulating Hormone 1.35 uIU/mL (0.36-3.74); Triglycerides 186 mg/dL (0-150)
== END 2020-06-23 10:07 ==
LOC: CHSLAB 10:07
PROVIDERS: Visit Provider Internal Medicine
DX: E11.9 Type 2 diabetes mellitus without complications (principal); I10 Essential (primary) hypertension; E78.00 Pure hypercholesterolemia, unspecified; R53.83 Other fatigue
CPT/HCPCS: 36415; 80053; 80061; 81003; 83036; 84443; 85025

== ENCOUNTER 2020-08-20 08:56 | Emergency (ER) | payer MEDICARE, OTHER, MEDICAID, SELFPAY ==
--- NOTE | ~2020-08-20 | XR_ITS ---
EXAMINATION: XR pelvis 1-2V DATE: 08/20/2020 10:14 INDICATION: Pelvic pain post fall TECHNIQUE: An anteroposterior view of the pelvis was obtained on 3 images. COMPARISON: Hip radiographs dated 09/19/2015 and 01/08/2013 FINDINGS: Partially visualized lumbar levorotoscoliosis with severe spondylosis. Alignment is otherwise normal. No acute fracture. Moderate right and mild left hip osteoarthritis. There is also mild to moderate b ilateral sacroiliac osteoarthritis. IMPRESSION: 1. Mild left and moderate right hip osteoarthritis. No acute osseous abnormality. 2. Mild lumbar levo rotoscoliosis with severe spondylosis. Reviewed, dictated and finalized at location A. IMPRESSION: 1. Mild left and moderate right hip osteoarthritis. No acute osseous abnormalit y. 2. Mild lumbar levo rotoscoliosis with severe spondylosis.
--- NOTE | ~2020-08-20 | XR_ITS ---
EXAMINATION: XR shoulder RT min 2V DATE: 08/20/2020 09:49 INDICATION: Right shoulder pain post fall TECHNIQUE: AP internally and externally rotated, AP oblique externally rotated, axillary and transsca pular Y views of the right shoulder were obtained. COMPARISON: None FINDINGS: Normal alignment. No fracture.Mild to moderate glenohumeral and acromioclavicular osteoarthritis. So ft tissues are unremarkable. Small calcified nodule in the right upper lung zone consistent with old granulomatous disease. IMPRESSION: Mild to moderate right glenohumeral and acromioclavicular osteoarthritis. No acute osseous abnormalit y. Reviewed, dictated and finalized at location A. IMPRESSION: Mild to moderate right glenohumeral and acromioclavicular osteoarthritis. No ac richelle osseous abnormality.
--- NOTE | ~2020-08-20 | CT_ITS ---
EXAMINATION: CT brain wo con DATE: 08/20/2020 09:47 INDICATION: Fall with head injury TECHNIQUE: Computed tomography (CT) of the head was performed without intravenous contrast. Sagittal and coronal reconstructions were performed. The mA was adjusted according to patient size. Iterative reconstruction technique was employed. The dose-length product was 605.33 mGy-cm. COMPARISON: head CT dated 07/08/2014 FINDINGS: No fracture. No acute intracranial hemorrhage, acute infarction or abnormal extra axial fluid collect ion. There is mild scattered white matter hypoattenuation consistent with chronic small vessel ischem ic disease. Symmetric prominence of the sulci and ventricles consistent with moderate age-appropriate diffuse cerebral volume loss. No mass/mass effect. Changes of bilateral intraocular lens replacemen t. The orbits, paranasal sinuses and mastoid air cells are normal. Intracranial calcified cerebral at herosclerosis is noted. IMPRESSION: 1. No fracture or acute intracranial process. 2. Age-related changes including and moderate diffuse volume loss and mild scattered white matter hyp oattenuation consistent with chronic small vessel ischemic disease. Reviewed, dictated and finalized at location A. IMPRESSION: 1. No fracture or acute intracranial process. 2. Age-related changes including and moderate diffuse volume loss and mild scat tered white matter hypoattenuation consistent with chronic small vessel ischemi c disease.
--- NOTE | ~2020-08-20 | CT_ITS ---
EXAMINATION: CT cervical spine wo con DATE: 08/20/2020 09:48 INDICATION: Left-sided neck pain and tenderness post fall. TECHNIQUE: Computed tomography (CT) of the cervical spine was performed without intravenous contrast. Automated exposure control and iterative reconstruction technique were employed. The dose-length pro duct was 689.98 mGy-cm. COMPARISON: None FINDINGS: Straightening of the normal cervical lordosis. Vertebral body heights are normal. No fracture. Severe osteoarthritis at the atlantoaxial articulation. Severe disc height loss at C4-C5, C5-C6 and T2-T3. Moderate disc height loss at C3-C4, C6-C7, T3-T4 and T4-T5 and mild disc height loss at the remaining intervening levels. Multilevel disc bulges and disc osteophyte complexes throughout the cervical spi ne resulting in mild central canal stenosis most prominent at C5-C6 and C6-C7. Severe facet osteoarth ritis on the left at C2-C3 and C7-T1. Mild to moderate facet osteoarthritis at the remaining cervical levels. Moderate neural foraminal stenosis on the left at C6-C7 and C7-T1 and mild neural foraminal stenosis at multiple additional cervical levels on both the left and right. Mild groundglass opacitie s in the visualized bilateral upper lung zones most likely atelectasis related to expiratory phase of imaging. There is narrowing of the trachea and mainstem bronchi suggesting bronchomalacia. Calcified left upper lobe nodule and calcified mediastinal lymph nodes consistent with old granulomatous disea se. IMPRESSION: 1. Severe cervical and upper thoracic spondylosis. No acute osseous abnormality. 2. Bronchomalacia. Reviewed, dictated and finalized at location A. IMPRESSION: 1. Severe cervical and upper thoracic spondylosis. No acute osseous abnormality . 2. Bronchomalacia.
[2020-08-20 09:00] VITALS: BP 153/51; PULSE 51; RESP 16; TEMP 36.6; O2SAT 95
--- NOTE | 2020-08-20 10:45 | ED.FALL ---
HPI - Fall General Chief Complaint: Fall Stated Complaint: Ambulance Time Seen by Provider: 08/20/20 08:57 Source: patient and EMS Mode of arrival: EMS Limitations: dementia History of Present Illness HPI Narrative: 85-year-old woman with a history of dementia, type 2 diabetes, CML, coronary artery disease, and osteoarthritis brought to the emergency department today by EMS after she was found at the assisted living facility lying on the floor next to her bed. It was unwitnessed. Patient states she does not remember falling on the floor. Her daughter states that she is a sound sleeper. She initially complained of head and neck pain, left pelvic pain, and left shoulder pain. After the exam she states that she has very little head pain. She has had no vomiting and denies any numbness or tingling. MD complaint: fall Onset (ago): hour(s) (1) Fall from: out of bed Fall witnessed: no Place fall occurred: group home/SNF Loss of consciousness: unsure Prolonged down time: no Symptoms prior to fall: none Context: other (FOB) Location of injury: head, neck and pelvis Location of injury - extremities: Left: shoulder Severity: mild Quality: sharp and aching Associated symptoms (after fall): neck pain Related Data Home Medications Medication Instructions Recorded Confirmed Januvia 100 mg PO DAILY 11/02/19 11/02/19 Xiidra 1 drp OPHTHALMIC (EYE) BID 11/02/19 11/02/19 acetaminophen 1,000 mg PO BID PRN 11/02/19 11/02/19 allopurinol 200 mg PO DAILY 11/02/19 11/02/19 amlodipine 5 mg PO HS 11/02/19 11/02/19 aspirin 81 mg PO DAILY 11/02/19 11/02/19 calcium polycarbophil [Fiber-Lax] 1,250 mg PO BID 11/02/19 11/02/19 donepezil 10 mg PO DAILY 11/02/19 11/02/19 escitalopram oxalate 5 mg PO DAILY 11/02/19 11/02/19 hydrochlorothiazide 25 mg PO DAILY 11/02/19 11/02/19 irbesartan 300 mg PO DAILY 11/02/19 11/02/19 magnesium oxide 400 mg PO BID 11/02/19 11/02/19 montelukast 10 mg PO DAILY 11/02/19 11/02/19 pantoprazole 40 mg PO DAILY 11/02/19 11/02/19 rosuvastatin 5 mg PO HS 11/02/19 11/02/19 Allergies Allergy/AdvReac Type Severity Reaction Status Date / Time adhesive Allergy Mild Unknown Verified 11/02/19 20:16 ciprofloxacin Allergy Unknown Unknown Verified 11/02/19 16:52 metformin Allergy Unknown Unknown Verified 11/02/19 16:52 Review of Systems Review of Systems: All systems reviewed & are unremarkable except as noted in HPI and below Constitutional: Constitutional: Denies chills and Denies fever(s) Eyes: Eyes: Denies change in vision and Denies photophobia ENT: Denies nasal congestion and Denies sore throat Cardiovascular: Cardiovascular: Denies chest pain and Denies radiating jaw, neck or arm pain Respiratory: Respiratory: Denies cough and Denies dyspnea Gastrointestinal: Gastrointestinal: Denies abdominal pain, Denies nausea and Denies vomiting Genitourinary: Genitourinary: Denies dysuria Musculoskeletal: Musculoskeletal: Denies back pain, Reports arthralgias and Denies joint swelling Integumentary/Breasts: Skin/Breast: Denies pruritus, Denies erythema and Denies rash Neurologic: Denies vertigo, Denies dizziness and Denies syncope Hematologic/Lymphatic: Hematologic/Lymphatic: Denies easy bleeding and Denies easy bruising Allergic/Immunologic: Allergic/Immunologic: Denies lip swelling and Denies throat swelling PMFSH Past Medical History Medical History Atherosclerotic heart disease of [place] coronary artery without angina pectoris CAD (coronary artery disease) dx'd in 2005 , cardic catheter, moderate LAD + diagonal disease Cerebrovascular small vessel disease Chronic abdominal pain CML (chronic myelocytic leukemia) Cognitive impairment Dementia with a known etiology Diabetic neuropathy Elevated WBC count GERD (gastroesophageal reflux disease) h/o esophageal ring s/p dilation 2013 Hypertension Lower back pain JAIRO (obstructive sleep apnea) + sleep study CP
--- NOTE | 2020-08-20 11:09 | PC.NURSE ---
pt ambulatory with walker without difficulty.
== END 2020-08-20 11:15 | disposition home or self-care (01) ==
PROVIDERS: Emergency Provider Emergency Medicine; PCP Internal Medicine
DX: S09.90XA Unspecified injury of head, initial encounter (principal); S16.1XXA Strain of muscle, fascia and tendon at neck level, initial encounter; S40.012A Contusion of left shoulder, initial encounter; S70.02XA Contusion of left hip, initial encounter; W19.XXXA Unspecified fall, initial encounter; I25.10 Atherosclerotic heart disease of native coronary artery without angina pectoris; K21.9 Gastro-esophageal reflux disease without esophagitis; E11.9 Type 2 diabetes mellitus without complications
CPT/HCPCS: 70450; 72125; 72170; 73030; 99283; 99284

== ENCOUNTER 2021-02-22 13:13 | Emergency (ER) | payer MEDICARE, OTHER, MEDICAID, SELFPAY ==
--- NOTE | ~2021-02-22 | XR_ITS ---
EXAMINATION: XR lumbar spine 2-3V DATE: 02/22/2021 14:48 INDICATION: Left hip pain. Inability to bear weight. TECHNIQUE: 3 views of lumbar spine were obtained. COMPARISON: Lumbar spine radiograph 10/17/2017 FINDINGS: There is 19 degrees levoscoliosis of lumbar spine. There is 4 mm retrolisthesis of L2 on L3 . There is severely decreased disc height from L1-L2 through L5-S1 with endplate remodeling. There is multilevel severe facet joint osteoarthritis. Surgical clips in the right upper quadrant are likely from cholecystectomy. IMPRESSION: 1. Severe lumbar spondylosis. 2. Lumbar levoscoliosis. Reviewed, dictated and finalized at location B. COMBER
--- NOTE | ~2021-02-22 | XR_ITS ---
EXAMINATION: XR chest 1V portable DATE: 02/22/2021 14:49 INDICATION: Weakness. TECHNIQUE: A single frontal view of the chest was obtained. COMPARISON: Chest 2 views 11/02/2019, CT abdomen and pelvis 01/12/2013 FINDINGS: The chest demonstrates clear lungs without pneumonia, pleural effusion, or pneumothorax. Th e heart size is normal. IMPRESSION: 1. No acute cardiopulmonary disease. Reviewed, dictated and finalized at location B. MBLER ADJUSTER
--- NOTE | ~2021-02-22 | XR_ITS ---
EXAMINATION: XR pelvis 1-2V DATE: 02/22/2021 14:48 INDICATION: Left hip pain. TECHNIQUE: An anteroposterior view of the pelvis was obtained on 2 radiographs. COMPARISON: None. FINDINGS: There is lumbar levoscoliosis and severe spondylosis. No fracture. There is moderate osteoa rthritis of the hips. IMPRESSION: 1. Moderate osteoarthritis of the hips. Reviewed, dictated and finalized at location B. S SALES REPRESENTATIVE
--- NOTE | ~2021-02-22 | XR_ITS ---
EXAMINATION: XR femur LT min 2V DATE: 02/22/2021 14:49 INDICATION: Left hip pain, unable to bear weight. TECHNIQUE: Overlapping proximal and distal, AP and lateral views of the left femur were obtained. COMPARISON: None FINDINGS: Alignment is normal. Suspected nondisplaced pathologic fracture in the subtrochanteric proximal femor al diaphysis with subtle oblique linear lucency projecting over the anterior cortex and extending acr oss a large aggressive appearing lytic lesion filling the medullary space and with circumferential en dosteal scalloping involving in places greater than 50% of the cortical thickness. The lytic lesion m easures approximately 5.5 cm proximal to distal length and 2.9 x 2.5 cm in medial to lateral and AP d imensions. The medullary margins of the lytic lesion are relatively indistinct. Mild left hip osteoar thritis. Left total knee arthroplasty with patellar resurfacing which is in near-anatomic alignment w ith no periprosthetic lucency to suggest loosening or infection. No left knee joint effusion. Atheros clerotic calcification is along the left femoral and popliteal arteries. IMPRESSION: Suspected nondisplaced pathologic fracture through a large lytic lesion in the subtrochanteric proxim al left femoral diaphysis. Correlate for history of prior malignancy. If there is no known history of prior malignancy would consider contrast-enhanced CT of the chest, abdomen and pelvis for further ev aluation. Would also consider bone scan to assess for any additional bone lesions. Lytic lesions can be occult on bone scan and if no additional lesions are identified on bone scan would consider skelet al survey. Dr. Santos discussed these findings with Dr. Mortensen at 3:05 PM. Reviewed, dictated and finalized at location A. TREATING INSPECTOR IMPRESSION: Suspected nondisplaced pathologic fracture through a large lytic lesion in the subtrochanteric proximal left femoral diaphysis. Correlate for history of prior malignancy. If there is no known history of prior malignancy would consider co ntrast-enhanced CT of the chest, abdomen and pelvis for further evaluation. Wou ld also consider bone scan to assess for any additional bone lesions. Lytic les ions can be occult on bone scan and if no additional lesions are identified on bone scan would consider skeletal survey. Dr. Santos discussed these findings with Dr. Mortensen at 3:05 PM.
[2021-02-22 13:13] VITALS: BP 112/55; PULSE 64; RESP 20; TEMP 36.1; O2SAT 97
--- NOTE | 2021-02-22 13:15 | ED.LOWEXIN ---
HPI - Extremity Injury (Lower) General Chief Complaint: Extremity Injury, Lower Stated Complaint: AMBULANCE Time Seen by Provider: 02/22/21 13:15 Source: patient and family Mode of arrival: EMS Limitations: no limitations History of Present Illness HPI Narrative: 86-year-old woman with a history of CML, type 2 diabetes, peripheral artery disease, coronary artery disease and dementia brought to the emergency department by EMS after she has been unable to stand on her left leg due to pain for several days. She states that she stood approximately 1 week ago and felt sudden pain in her left hip. She has had no falls or other injuries. Since then she has had to use a wheelchair to get to the cafeteria at the assisted living. She has not been eating or drinking as usual. MD complaint: other (Hip pain) Onset (ago): week(s) (1) Type of Injury: other (None) Place: other (Assisted living facility) Severity: moderate (But no pain at rest) Exacerbating factors: weight bearing and movement Associated symptoms: unable to bear weight Other symptoms: none Related Data Home Medications Medication Instructions Recorded Confirmed Januvia 100 mg PO DAILY 11/02/19 02/22/21 Xiidra 1 drp OPHTHALMIC (EYE) BID 11/02/19 02/22/21 acetaminophen 1,000 mg PO BID PRN 11/02/19 02/22/21 allopurinol 200 mg PO DAILY 11/02/19 02/22/21 amlodipine 5 mg PO HS 11/02/19 02/22/21 aspirin 81 mg PO DAILY 11/02/19 02/22/21 calcium polycarbophil [Fiber-Lax] 1,250 mg PO BID 11/02/19 02/22/21 donepezil 10 mg PO DAILY 11/02/19 02/22/21 escitalopram oxalate 5 mg PO DAILY 11/02/19 02/22/21 hydrochlorothiazide 25 mg PO DAILY 11/02/19 02/22/21 irbesartan 300 mg PO DAILY 11/02/19 02/22/21 magnesium oxide 400 mg PO BID 11/02/19 02/22/21 montelukast 10 mg PO DAILY 11/02/19 02/22/21 pantoprazole 40 mg PO DAILY 11/02/19 02/22/21 rosuvastatin 5 mg PO HS 11/02/19 02/22/21 Allergies Allergy/AdvReac Type Severity Reaction Status Date / Time adhesive Allergy Mild Unknown Verified 11/02/19 20:16 ciprofloxacin Allergy Unknown Unknown Verified 11/02/19 16:52 metformin Allergy Unknown Unknown Verified 11/02/19 16:52 Review of Systems Review of Systems: All systems reviewed & are unremarkable except as noted in HPI and below Constitutional: Constitutional: Denies chills and Denies fever(s) Eyes: Eyes: Denies change in vision and Denies photophobia ENT: Denies nasal congestion and Denies sore throat Cardiovascular: Cardiovascular: Denies chest pain and Denies radiating jaw, neck or arm pain Respiratory: Respiratory: Denies cough, Denies dyspnea and Denies wheezing Gastrointestinal: Gastrointestinal: Denies abdominal pain, Denies diarrhea, Denies nausea and Denies vomiting Genitourinary: Genitourinary: Denies hematuria, Denies nocturia and Reports dysuria Musculoskeletal: Musculoskeletal: Denies back pain, Reports arthralgias and Denies joint swelling Integumentary/Breasts: Skin/Breast: Denies pruritus and Denies rash Neurologic: Denies vertigo, Denies dizziness, Denies syncope and Denies focal weakness Hematologic/Lymphatic: Hematologic/Lymphatic: Denies easy bleeding and Denies easy bruising Allergic/Immunologic: Allergic/Immunologic: Denies lip swelling and Denies throat swelling PMFSH Past Medical History Medical History Atherosclerotic heart disease of [place] coronary artery without angina pectoris CAD (coronary artery disease) dx'd in 2005 , cardic catheter, moderate LAD + diagonal disease Cerebrovascular small vessel disease Chronic abdominal pain CML (chronic myelocytic leukemia) Cognitive impairment Dementia with a known etiology Diabetic neuropathy Elevated WBC count GERD (gastroesophageal reflux disease) h/o esophageal ring s/p dilation 2012 Hypertension Lower back pain JAIRO (obstructive sleep apnea) + sleep study CPAP Intolerance intolerance Osteoarthritis PAD (peripheral artery disease) Type 2 di
--- NOTE | 2021-02-22 13:18 | ECG_ITS ---
Measurements Intervals [place] Rate: 55 P: NH: 0 QRS: 18 QRSD: 94 T: 32 QT: 436 QTc: 418 Interpretive Statements SINUS BRADYCARDIA WITH FIRST DEGREE AV BLOCK DELAYED PRECORDIAL R/S TRANSITION BASELINE ARTIFACT- I, II, III, AVR, AVL, AVF, V1, V3-V6 ABNORMAL ECG Electronically Signed On 02-22-2021 14:56:03 PAPER COUNTER by Ricardo Jean D.O.
[2021-02-22 14:04] LABS: Hematocrit 39.6 % (35.0-42.0); Hemoglobin 12.4 g/dL (11.7-13.8); Mean Corpuscular HGB Conc 31.3 g/dL (32.0-36.0); Mean Corpuscular Hemoglobin 29.1 pg (27.0-31.0); Mean Platelet Volume 10.5 fl (9.2-11.8); Platelet Count Result 229 K/mm3 (150-420); Red Blood Count 4.26 M/mm3 (4.20-5.40); Red Cell Distribution Width 14.5 % (11.6-14.4); White Blood Count 19.3 K/mm3 (4.8-10.8)
[2021-02-22 14:15] LABS: SARS-CoV-2 Ag Negative (Negative)
[2021-02-22 14:21] LABS: Partial Thromboplastin Time 28.8 SEC (23.90-30.70); Prothrombin Time 10.8 Seconds (9.50-12.10)
[2021-02-22 14:22] LABS: Band Neutrophils Percent 0 % (0-6); Basophils Percent Manual 0 % (0-1); Eosinophils Absolute Manual 0.77 K/mm3 (0.02-0.5); Eosinophils Percent Manual 4 % (1-6); Lymphocytes Absolute Manual 12.15 K/mm3 (1.1-4.5); Lymphocytes Percent Manual 63 % (18-44); Monocytes Absolute Manual 0.38 K/mm3 (0.1-0.90); Monocytes Percent Manual 2 % (3-9); Neutrophils Absolute Manual 5.98 K/mm3 (1.7-7.2); Neutrophils Percent Manual 31 % (46-73); Total Cells Counted 100
[2021-02-22 14:23] LABS: Alanine Aminotransferase 13 U/L (14-59); Albumin Level 3.5 g/dL (3.4-5.0); Alkaline Phosphatase 130 U/L (46-116); Anion Gap 7 mmol/L (8-16); Aspartate Amino Transferase 10 U/L (15-37); Bilirubin,Total 0.4 mg/dL (0.00-1.00); Blood Urea Nitrogen 34 mg/dL (7-18); Carbon Dioxide 31 mmol/L (21-32); Chloride 100 mmol/L (98-108); Estimated Glomerular Filt Rate 24; Glucose 197 mg/dL (70-99); Lactic Acid Reflex 1.9 mmol/L (0.4-2.0); Osmolality Calculated 298 mOsm/kg (285-295); Platelet Estimate Adequate (Adequate); Potassium 4.2 mmol/L (3.5-5.1); Sodium 138 mmol/L (136-145); Total Protein 6.9 g/dL (6.4-8.2); Troponin I 9.4 ng/L (0.00-60.4)
[2021-02-22 14:26] LABS: CRP < 0.5 mg/dL (0.0-0.9)
[2021-02-22] MEDS: SODIUM CHLORIDE 0.9% IV 1,000 ML 999 ML IV CONT (15:40)
--- NOTE | 2021-02-22 17:30 | PC.NURSE ---
pt declined gown placement, want to wait till gets to [facility]. unable to urinate. does not want [facility] at this time.
[2021-02-22 17:39] VITALS: BP 138/80; PULSE 62; RESP 20; TEMP 36.8; O2SAT 96
== END 2021-02-22 18:02 | disposition short-term general hospital (02) ==
PROVIDERS: Emergency Provider Emergency Medicine; PCP Internal Medicine
DX: E86.0 Dehydration (principal); C92.10 Chronic myeloid leukemia, BCR/ABL-positive, not having achieved remission; M84.552A Pathological fracture in neoplastic disease, left femur, initial encounter for fracture; N17.9 Acute kidney failure, unspecified; I25.10 Atherosclerotic heart disease of native coronary artery without angina pectoris; I10 Essential (primary) hypertension; E11.9 Type 2 diabetes mellitus without complications; K21.9 Gastro-esophageal reflux disease without esophagitis; Z20.822 Contact with and (suspected) exposure to COVID-19
CPT/HCPCS: 36415; 71045; 72100; 72170; 73552; 80053; 83605; 84484; 85025; 85610; 85730; 86140; 87040; 87426; 93005; 99285; C9803; J7030